=== PATIENT | male | born 1990 | race Two or more races ===

== ENCOUNTER 2022-04-27 23:49 | Inpatient (IN) | payer OTHER ==
[2022-04-28 04:14] VITALS: BMI 21.2
[2022-04-28] MEDS ORDERED: DICYCLOMINE HCL 10 MG CAPSULE PO PRN (06:49)
[2022-04-28] MEDS ORDERED: NICOTINE POLACRILEX 2 MG GUM BUC PRN (06:49)
[2022-04-28] MEDS ORDERED: IBUPROFEN 600 MG TABLET (FP) PO PRN (06:49)
[2022-04-28] MEDS ORDERED: ACETAMINOPHEN 325 MG TABLET (FP) PO PRN ×2 (06:49)
[2022-04-28] MEDS ORDERED: ONDANSETRON *ODT* 4 MG TABLET SL PRN (06:49)
[2022-04-28] MEDS ORDERED: BENZOCAINE/MENTHOL (CHLORASEPTIC ) LOZENGE MM PRN (06:49)
[2022-04-28] MEDS ORDERED: LOPERAMIDE HCL 2 MG CAPSULE PO PRN (06:49)
[2022-04-28] MEDS ORDERED: IBUPROFEN 400 MG TABLET (FP) PO PRN (06:49)
[2022-04-28] MEDS ORDERED: MAGNESIUM HYDROX 2400MG/30ML ORAL SUSPENSION 30 ML CUP PO PRN (06:49)
[2022-04-28] MEDS ORDERED: MAG HYDROX/AL HYDROX/SIMETH 30 ML UNIT-DOSE CUP PO PRN (06:49)
[2022-04-28] MEDS ORDERED: MAGNESIUM CITRATE 300 ML BOTTLE PO PRN (06:49)
[2022-04-28] MEDS ORDERED: BISMUTH SUBSALICYLATE 524 MG/30 ML PO PRN (06:49)
[2022-04-28] MEDS ORDERED: cloNIDine HCL 0.1 MG TABLET PO PRN (08:46)
[2022-04-28] MEDS ORDERED: methaDONE HCL 10 MG TABLET (FOR DETOX USE ONLY) ONE (09:06)
[2022-04-28] MEDS ORDERED: methaDONE HCL 10 MG TABLET (FOR DETOX USE ONLY) PO ONE (09:15)
[2022-04-28] MEDS: PRENATAL VITAMINS W/ FOLIC ACID TABLET (FP) PO SCH (12:23)
[2022-04-28] MEDS: NICOTINE 14 MG/24 HOURS TOPICAL PATCH TD SCH (12:23)
[2022-04-28] MEDS: METHOCARBAMOL 500 MG TABLET PO PRN ×2 (12:23→22:04)
[2022-04-28 13:52] LABS: HEMATOCRIT 38.9 % (35.4-49); MCH 30.5 pg (25.7-33.7); MCHC 33.4 g/dl (32.0-35.9); MEAN CELL VOLUME 91.5 fl (80-96); MEAN PLT VOLUME 8.5 fl (7.5-11.1); PLATELET COUNT 273 10^3/uL (134-434); RBC 4.25 M/mm3 (4.00-5.60); RDW 13.2 % (11.9-15.9)
[2022-04-28 13:54] LABS: ALBUMIN 4.3 g/dl (3.4-5.0); BLOOD UREA NITROGEN 20.7 mg/dL (7-18); CALCIUM 9.3 mg/dL (8.5-10.1)
[2022-04-28 13:57] LABS: CREATININE 0.8 mg/dL (0.55-1.3)
[2022-04-28 13:59] LABS: BILIRUBIN,TOTAL 0.4 mg/dL (0.2-1); TOT PROT 7.7 g/dl (6.4-8.2)
[2022-04-28] MEDS: THIAMINE HCL 100 MG TABLET (FP) PO SCH (22:04)
[2022-04-28] MEDS: MELATONIN 5 MG TABLETS PO SCH (22:04)
[2022-04-29] MEDS: METHOCARBAMOL 500 MG TABLET PO PRN (10:56)
[2022-04-29] MEDS: NICOTINE 14 MG/24 HOURS TOPICAL PATCH TD SCH (10:56)
[2022-04-29] MEDS: PRENATAL VITAMINS W/ FOLIC ACID TABLET (FP) PO SCH (10:56)
[2022-04-29] MEDS: NICOTINE 10 MG CARTRIDGE (INHALER) IH PRN (13:38)
[2022-04-29] MEDS: ESCITALOPRAM OXALATE 20 MG TABLET PO SCH (14:47)
[2022-04-29] MEDS: THIAMINE HCL 100 MG TABLET (FP) PO SCH (23:19)
[2022-04-29] MEDS: MELATONIN 5 MG TABLETS PO SCH (23:19)
[2022-04-30] MEDS ORDERED: methaDONE HCL 10 MG TABLET (FOR DETOX USE ONLY) PO ONE (10:00)
[2022-04-30] MEDS: NICOTINE 10 MG CARTRIDGE (INHALER) IH PRN (10:30)
[2022-04-30] MEDS: ESCITALOPRAM OXALATE 20 MG TABLET PO SCH (10:30)
[2022-04-30] MEDS: PRENATAL VITAMINS W/ FOLIC ACID TABLET (FP) PO SCH (10:30)
[2022-04-30] MEDS: NICOTINE 14 MG/24 HOURS TOPICAL PATCH TD SCH (10:31)
[2022-04-30] MEDS: METHOCARBAMOL 500 MG TABLET PO PRN ×2 (10:31→17:22)
[2022-04-30] MEDS: diazePAM 5 MG TABLET PO PRN ×2 (17:20→22:05)
[2022-04-30] MEDS: MELATONIN 5 MG TABLETS PO SCH (22:04)
[2022-04-30] MEDS: THIAMINE HCL 100 MG TABLET (FP) PO SCH (22:04)
[2022-04-30] MEDS: SUVOREXANT 10 MG TABLET PO PRN (22:08)
[2022-05-01] MEDS: NICOTINE 14 MG/24 HOURS TOPICAL PATCH TD SCH (10:30)
[2022-05-01] MEDS: PRENATAL VITAMINS W/ FOLIC ACID TABLET (FP) PO SCH (10:30)
[2022-05-01] MEDS: ESCITALOPRAM OXALATE 20 MG TABLET PO SCH (10:30)
[2022-05-01] MEDS: METHOCARBAMOL 500 MG TABLET PO PRN (10:31)
[2022-05-01] MEDS: NICOTINE 10 MG CARTRIDGE (INHALER) IH PRN (12:20)
[2022-05-01] MEDS: THIAMINE HCL 100 MG TABLET (FP) PO SCH (22:19)
[2022-05-01] MEDS: SUVOREXANT 10 MG TABLET PO PRN (22:19)
[2022-05-01] MEDS: MELATONIN 5 MG TABLETS PO SCH (22:20)
[2022-05-02] MEDS ORDERED: methaDONE HCL 10 MG TABLET (FOR DETOX USE ONLY) PO ONE (10:00)
[2022-05-02] MEDS: NICOTINE 10 MG CARTRIDGE (INHALER) IH PRN (10:20)
[2022-05-02] MEDS: ESCITALOPRAM OXALATE 20 MG TABLET PO SCH (10:20)
[2022-05-02] MEDS: METHOCARBAMOL 500 MG TABLET PO PRN (10:20)
[2022-05-02] MEDS: PRENATAL VITAMINS W/ FOLIC ACID TABLET (FP) PO SCH (10:20)
[2022-05-02] MEDS: NICOTINE 14 MG/24 HOURS TOPICAL PATCH TD SCH (10:20)
[2022-05-02] MEDS: MELATONIN 5 MG TABLETS PO SCH (22:20)
[2022-05-02] MEDS: THIAMINE HCL 100 MG TABLET (FP) PO SCH (22:20)
[2022-05-03] MEDS: METHOCARBAMOL 500 MG TABLET PO PRN (06:02)
[2022-05-03 09:26] VITALS: BP 128/87; PULSE 79; RESP 16; TEMP 96.9
[2022-05-03] MEDS: PRENATAL VITAMINS W/ FOLIC ACID TABLET (FP) PO SCH (10:09)
[2022-05-03] MEDS: ESCITALOPRAM OXALATE 20 MG TABLET PO SCH (10:09)
[2022-05-03] MEDS: NICOTINE 14 MG/24 HOURS TOPICAL PATCH TD SCH (13:27)
== END 2022-05-03 13:55 | disposition home or self-care (01) | DRG 773 ==
LOC: YASAS 23:49 → Y6N 04-28 11:36
PROVIDERS: ADMIT Allergy & Immunology; ATTEND Surgery
PROC: HZ2ZZZZ Detoxification Services for Substance Abuse Treatment (ICD-10-PCS; principal; 2022-04-28)
DX: F11.23 Opioid dependence with withdrawal (principal); F17.210 Nicotine dependence, cigarettes, uncomplicated; F19.282 Other psychoactive substance dependence with psychoactive substance-induced sleep disorder; F41.8 Other specified anxiety disorders; F32.A Depression, unspecified; F90.9 Attention-deficit hyperactivity disorder, unspecified type
CPT/HCPCS: 36415; 80053; 82962; 85027; 86780; 87811; 93005; 93010; C9803-CS; Q0162; U0003; U0005